=== PATIENT | female | born 1960 ===

== ENCOUNTER 2018-07-10 09:13 | Inpatient (IN) | payer OTHER ==
[~2018-07-10] VITALS: Ht 154.9 cm; Wt 69.9 kg
[2018-07-10] MEDS ORDERED: NORVASC5 MG PO (11:23)
[2018-07-10] MEDS ORDERED: COZAAR50 MG PO (11:23)
[2018-07-10] MEDS ORDERED: SYNTHROID50 MCG PO (11:24)
[2018-07-20] MEDS ORDERED: OXYC1TAB9 PO (07:52)
[2018-07-20] MEDS ORDERED: HYOSCYAMINE0.125 M1 SL (07:52)
[2018-07-20] MEDS ORDERED: PANTOPRAZOLE SO40 MG PO (07:53)
[2018-07-20] MEDS ORDERED: Intestinex CAP PO (07:53)
== END 2018-07-20 09:27 | disposition home or self-care (01) | DRG 331 ==
LOC: O/R 07-17 05:50 → SURH 07-17 05:50
PROVIDERS: ADMIT Surgery
PROC: 0DJD8ZZ Inspection of Lower Intestinal Tract, Via Natural or Artificial Opening Endoscopic (ICD-10-PCS; 2018-07-17)
PROC: 0DTN4ZZ Resection of Sigmoid Colon, Percutaneous Endoscopic Approach (ICD-10-PCS; principal; 2018-07-17 12:15)
DX: K57.32 Diverticulitis of large intestine without perforation or abscess without bleeding (principal); I10 Essential (primary) hypertension